=== PATIENT | male | born 1990 | race Caucasian/White ===

== ENCOUNTER 2018-07-12 20:21 | Emergency (ER) | payer BC, SELFPAY ==
[2018-07-12 20:22] VITALS: BP 142/85; PULSE 91; RESP 14; TEMP 37; O2SAT 100; BMI 24.3
--- NOTE | 2018-07-12 21:06 | ED.DCSUM_ITS ---
- ER Visit Summary Date of Service: 07/12/18 Chief Complaint: Cyst History of Present Illness: The patient is a 28 M with no primary care physician. Reports he is a cyst posterior to his left ear that began years ago and increase in size 2 days ago after he attempted to squeeze it. States that today he is tempted to put a needle in it and did not get any drainage from it. He denies any pain. Physical Examination: Vitals: Stable. Afebrile. General: Well-nourished and well-developed. Head: Normocephalic atraumatic. Neck: Supple, no lymphadenopathy. No JVD. Nontender. Cardiovascular: Regular rate and rhythm. No murmurs. Respiratory: No respiratory distress. Clear to auscultation bilaterally. Abdominal: Soft, nontender, nondistended, normal bowel sounds. No guarding, rebound, or peritoneal signs. Back: Nontender. Extremities: Nontender, no edema. Skin: Approximately 1 cm in diameter sebaceous cyst with mild tenderness palpation to the left mastoid. There is no erythema or induration.. Neurologic: Alert and oriented ?3. Cranial nerves II through XII are intact. Normal strength and sensation. Psych: Normal affect. Emergency Department Course and Treatment: The patient has refused an incision and drainage. He is given a dose of doxycycline p.o. Treatment Plan: Patient will be discharged on doxycycline. Instructed follow- up Dr. Gwyn Boyce in 3-5 days if not improving. He does understand that he may need an incision and drainage if this is not resolving. Return to the emergency department for any worsening symptoms. Disposition: To home in improved and stable condition. Impression: 1. Sebaceous cyst left mastoid process. This note was generated with [employer] dictation software. It may contain incorrect words, spelling, and punctuation that were not noted in review of the chart prior to signing ED Disposition - Plan for ED Patient: Disposition: Home or Assisted Living Chief Complaint: Abscess Instructions: ED Cyst Sebaceous Infec Abx Tx Prescriptions: Doxycycline Monohydrate 100 mg PO BID #20 capsule Referrals: Gwyn Avelar MD [STAFF PHYSICIAN] - 3-5 Days if not improving
[2018-07-12] MEDS: Doxycycline 100 MG CAPSULE PO (21:14)
[2018-07-12 21:15] VITALS: BP 120/82; PULSE 89; RESP 16; O2SAT 100
== END 2018-07-12 21:17 | disposition home or self-care (01) ==
LOC: ED 21:13
PROVIDERS: Emergency Provider Emergency Medicine
DX: L72.3 Sebaceous cyst (principal)
CPT/HCPCS: 99283